=== PATIENT | female | born 1965 | race Caucasian/White ===

== ENCOUNTER → 2018-01-10 | Outpatient (CLI) | payer MEDICARE ==
--- NOTE | 2018-01-10 14:12 | PE ---
EXAMINATION TYPE: PET CT fusion skull to thigh DATE OF EXAM: 01/10/2018 CLINICAL HISTORY: Solitary pulmonary nodule TECHNIQUE: Following the intravenous administration of 13.94 mCi of F-18 FDG, whole body images are performed from the skull base to the midthigh. Images are reviewed on the computer in the coronal, axial, and sagittal planes. Reconstructed rotating images are created on independent workstation and reviewed on the computer. A non-contrast CT is performed in conjunction with the PET scan. COMPARISON: Chest x-ray from 3 days ago. FINDINGS: SKULL BASE AND NECK: No suspicious hypermetabolic uptake is seen. CHEST, MEDIASTINUM, AND HILAR REGION: There is background mild to moderate emphysematous change. Ther e is some nodular infiltrate in the left midlung felt to relate to the middle posterior aspect of the lingula axial image 95 measuring approximately 2.2 x 1.8 cm, max SUV is 7.68. In the left lower lobe there is nodular consolidation measuring approximately 1.9 x 1.3 cm axial image 97 with max SUV of 8 .37. There is encasement of a small bronchus at this level. Right lung is clear. No suspicious thoracic lymph nodes are seen. No additional areas of abnormal hyp ermetabolic uptake are identified. ABDOMEN AND PELVIS: There is asymmetric increased uptake in the right colon including cecum without d efinitive soft tissue mass. Colonoscopy follow-up is advised if has not been performed since age 49 t o exclude malignancy at this level. OSSEOUS STRUCTURES: No suspicious hypermetabolic uptake is present. OTHER CT: There is mild calcified plaque at bilateral carotid bulb level. There is coronary artery calcification which is noted marker for coronary artery disease. 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 There is dilated distal esophagus with air-fluid level at proximal level of sutures. Need to f urther investigate by esophagram should be based on clinical correlation. Cholecystectomy clips are present. There is 3.8 x 3.5 cm low dense left adrenal mass axial image 133 which contains some calcifications superiorly, Hounsfield units are less than 10, findings consistent with lipid rich benign adenoma. There are diverticula in the sigmoid colon. There is multilevel facet arthropathy in the lower lumbar spine. There is multilevel spurring in the thoracolumbar spine. There is underlying levoconvex scoliosis. IMPRESSION: 1. Two adjacent areas of nonspecific hypermetabolic nodularity or nodular consolidation. Morphology w ould favor infectious or inflammatory process however max SUV is somewhat higher or more concerning f or neoplasm. Consider bronchoscopy evaluation to further evaluate. Contrast-enhanced chest CT correla tion may be beneficial. No suspicious thoracic adenopathy noted. No metastatic disease present. 2. Attention to cecum and right colon. Colonoscopy follow-up advised if has not been performed in las t 3 years. 3. Attention to distal esophagus at level of proximal sleeve, herniated sleeve into lower thoracic me diastinum noted.
== END | disposition home or self-care (01) ==
LOC: RADPETMAIN 08:43
PROVIDERS: ATTEND Internal Medicine
DX: R91.8 Other nonspecific abnormal finding of lung field (principal); D35.00 Benign neoplasm of unspecified adrenal gland
CPT/HCPCS: 78815; A9552